=== PATIENT | female | born 1990 | race Caucasian/White ===

== ENCOUNTER 2018-10-22 07:23 | Emergency (ER) | payer BC | END 2018-10-22 09:00 | disposition home or self-care (01) | LOC: FTE 07:23 | DX: S99.912A Unspecified injury of left ankle, initial encounter (principal); E10.9 Type 1 diabetes mellitus without complications; X58.XXXA Exposure to other specified factors, initial encounter; Y92.9 Unspecified place or not applicable | CPT/HCPCS: 73610; 99283-25 ==